=== PATIENT | male | born 1940 | race Caucasian/White ===

== ENCOUNTER 2025-06-08 14:38 | Emergency (ER) | payer MEDICARE ==
[~2025-06-08] VITALS: Ht 170.2 cm; Wt 90.7 kg
[2025-06-08 15:50] LABS: BASOPHILS % 0.8 % (0.0-1.0); EOSINOPHILS % 1.1 % (0.0-6.0); LYMPHOCYTES % 20.1 % (18.0-39.1); MONOCYTES % 10.3 % (4.4-11.3); NEUTROPHILS % 67.4 % (38.7-80.0); RED CELL DISTRIBUTION WIDTH 13.9 % (11.7-14.4)
[2025-06-08 16:10] VITALS: PULSE 69; TEMP 98
[2025-06-08 17:28] VITALS: RESP 18
[2025-06-08 17:37] LABS: EST GLOMERULAR FILTRATION RATE 53.0 ML/MIN (>=60)
[2025-06-08] MEDS ORDERED: IOPAMIDOL 370 MG/ML 100 ML INFUS..BTL INJ ONE (17:42)
[2025-06-08 21:55] VITALS: BP 161/69; O2SAT 97
== END 2025-06-08 20:25 | disposition home or self-care (01) ==
LOC: ER 15:25
DX: K44.9 Diaphragmatic hernia without obstruction or gangrene (principal); K57.90 Diverticulosis of intestine, part unspecified, without perforation or abscess without bleeding; R91.1 Solitary pulmonary nodule; N28.1 Cyst of kidney, acquired
CPT/HCPCS: 36415; 71260; 74177; 80053; 83690; 85025; 99284; Q9967